=== PATIENT | female | born 1995 | race Caucasian/White ===

== ENCOUNTER 2016-08-03 10:52 | Inpatient (IN) | payer BC, OTHER ==
--- NOTE | 2016-08-03 12:05 | P.HPOB ---
History of Present Illness H&P Date: 08/03/16 Chief Complaint: Strong regular uterine contractions This is a 20-year-old white female 1 para 0 EDC 08/02/2016 at 40 and one sevenths weeks' gestation. Patient presents with a history of strong regular uterine contractions. She denies fluid leakage or vaginal bleeding. She states the fetus has been active throughout the weekend including this morning. On admission, however, no heart tones were noted. Bedside ultrasound confirmed intrauterine demise, vertex whitney. history: Blood type O positive, rubella status nonimmune, antibody screen negative, VDRL testing, urine culture, HIV testing, hepatitis B surface antigen, gonorrhea and chlamydia cultures, Pap smear all negative. 18 week ultrasound was significant for a lemon shaped had, choroid plexus cyst, and bright cord a tendon a. Patient was sent to [facility], maternal - medicine for second opinion, there evaluation was consistent with suspicion of normal variant. She also had a subchorionic bleed noted in the first trimester ultrasound, resolved at 20 weeks scan. Group B strep cultures negative. Current medications vitamins daily. ALLERGIES none known. Family history essentially unremarkable. Social history: Patient is single, she denies alcohol or drug use, she has never been a smoker. Past medical history is essentially negative. Past surgical history negative. On exam this is a pleasant young female, she is 5 foot 2-1/2 inches, 212 pounds , vital signs are stable and she is afebrile. The general physical exam is within normal limits. The chest is clear, the extremities reveal no edema. The cervix is 5-6 cm dilated, 80% effaced, -2 station, vertex presentation. Artificial amniorrhexis reveals dark meconium-stained fluid. No heart rate is noted per monitor or bedside ultrasound, consistent with intrauterine demise. Impression: 40 and one sevenths weeks intrauterine , IUFD, meconium- stained fluid, suspect abnormal fetus per 19 week ultrasound. Plan: We will proceed with Cytotec intravaginally per protocol. Close maternal surveillance. Anesthesia is aware. Option for epidural is discussed which at this time patient is declining. Past Medical History Past Medical History: No Reported History History of Any Multi-Drug Resistant Organisms: None Reported Past Surgical History: No Surgical Hx Reported Past Psychological History: No Psychological Hx Reported Smoking Status: Never smoker Past Alcohol Use History: None Reported Past Drug Use History: None Reported Medications and Allergies Home Medications Medication Instructions Recorded Confirmed Type Pnv with Ca,No.72/Iron/FA 1 tab PO DAILY 12/27/15 08/03/16 History [ Plus Tablet] Allergies Allergy/AdvReac Type Severity Reaction Status Date / Time No Known Allergies Allergy Verified 08/03/16 11:05 Exam - Vital Signs Vital signs: Intake and Output 08/02/16 08/03/16 08/03/16 22:59 06:59 14:59 Other: Weight 90.718 kg Patient Weight 08/04/16 06:59 Weight 90.718 kg
[2016-08-03] MEDS: LACTATED RINGERS 1,000 ML IV SCH ×2 (12:19→22:05)
[2016-08-03] MEDS: MISOPROSTOL 200 MCG TAB VAGINAL SCH ×2 (12:27→23:02)
[2016-08-03] MEDS ORDERED: BUTORPHANOL 1 MG/ML 1 ML VIAL IV PRN (12:35)
[2016-08-03 12:46] LABS: Basophils # (A) 0.1 k/uL (0-0.2); Basophils % (A) 1 %; CH 31.1; CHCM 34.6; Eosinophils # (A) 0.2 k/uL (0-0.7); Eosinophils % (A) 1 %; HCT 45.4 % (34.0-46.0); HDW 2.58; HGB 15.3 gm/dL (11.4-16.0); Luc # (Auto) 0.26; Luc % (Auto) 2; Lymphocytes # (A) 1.9 k/uL (1.0-4.8); Lymphocytes % (A) 17 %; MCH 30.3 pg (25.0-35.0); MCHC 33.6 g/dL (31.0-37.0); MCV 90.2 fL (80.0-100.0); Mean Platelet Volume 7.2; Monocytes # (A) 0.5 k/uL (0-1.0); Monocytes % (A) 4 %; Neutrophils % (A) 74 %; RBC 5.03 m/uL (3.80-5.40); RDW 13.4 % (11.5-15.5); WBC 10.8 k/uL (3.8-10.6); WBC (Perox) 11.54
[2016-08-03] MEDS ORDERED: SIMETHICONE 80 MG CHEWABLE PO PRN ×3 (15:20→22:59)
[2016-08-03] MEDS ORDERED: WITCH HAZEL 1 EACH MED..PAD TOPICAL PRN ×3 (15:20→22:59)
[2016-08-03] MEDS ORDERED: HYDROCORTISONE 2.5% RECTAL CREAM 30 GM TUBE RECTAL PRN ×3 (15:20→22:59)
[2016-08-03] MEDS ORDERED: diphenhydrAMINE 50 MG CAP PO PRN ×3 (15:20→22:59)
[2016-08-03] MEDS ORDERED: Acetaminophen-Codeine 300-30mg TAB PO PRN (15:20)
[2016-08-03] MEDS ORDERED: ZOLPIDEM 5 MG TAB PO PRN ×3 (15:20→22:59)
[2016-08-03] MEDS ORDERED: BENZOCAINE/MENTHOL SPRAY 1 GM/SPRAY AEROSOL TOPICAL PRN ×3 (15:20→22:59)
[2016-08-03] MEDS ORDERED: diphenhydrAMINE 50 MG/ML 1 ML VIAL IVP PRN ×6 (15:20→22:59)
[2016-08-03] MEDS ORDERED: ACETAMINOPHEN TAB 325 MG TAB PO PRN ×3 (15:20→22:59)
[2016-08-03] MEDS ORDERED: diphenhydrAMINE 25 MG CAP PO PRN ×3 (15:20→22:59)
[2016-08-03] MEDS ORDERED: LANOLIN CREAM 5 GM TUBE TOPICAL PRN ×3 (15:20→22:59)
[2016-08-03] MEDS ORDERED: IBUPROFEN 600 MG TAB PO PRN ×3 (15:20→22:59)
--- NOTE | 2016-08-03 15:20 | P.PROBDLV ---
Vaginal Delivery Note - . Vaginal Delivery Note: This is a 20-year-old white female 1 para 0 EDC 08/02/2016 at 40 and one sevenths weeks' gestation. Patient presented to labor and delivery with a complaint of strong regular uterine contractions. Upon evaluation in the triage area, heart tones could not be located. For this reason, a bedside ultrasound was performed and this verified the presence of no heart rate, consistent with intrauterine demise. The family was notified and thorough discussion ensued. Patient states she has felt activity up until this morning. She denies vaginal bleeding or fluid leakage. On admission her cervix was 4 cm dilated, please see my dictated history and physical for details. course is remarkable for sonographic findings at 19 weeks consistent with 11 shaped head, choroid plexus cysts, and abnormal chordaie tendonaie of the heart. Artificial amniorrhexis revealed very darkly stained meconium fluid. Patient was counseled regarding choice of epidural versus Stadol, she chose Stadol 1 mg 1 dose for pain relief. Cytotec 400 MCG's was placed intravaginally to augment labor. Patient progressed well through labor and became completely dilated with a strong urge to push. The perineal body was prepped and draped in the usual sterile fashion. The infant's head delivered at 1500 hrs. The scalp was noted to be sloughing from the head. There was a very tight nuchal cord 1 that was reduced on the perineal body. Patient was officially delivered of a liveborn female at 1500 hrs. scores were 0 and 0 at one and 5 minutes respectively. There was no heart rate. Trivascular cord was noted, cord was doubly clamped and ligated. The infant was inspected and there was obvious skin sloughing about the neck and chest, but no other obvious physical anomalies were noted. She was wrapped gently in blankets and given to family members to hold as per their comfort level. The placenta delivered spontaneously, it was inspected and noted to be very darkly meconium stained with hemorrhagic trivascular cord at 1502 hrs. The placenta appeared small to my inspection but fully intact. At this time thorough inspection of the cervix, vagina, perineal, periurethral, and perirectal areas revealed no lacerations. No suturing was deemed necessary. The perineal body was cleaned and dry and a pad placed. Weight and height of the infant has not been recorded at time of this dictation, as family members are beginning the grieving process. Spiritual support has been offered , family has called their own home comfort advisor. Continue patient and family support.
[2016-08-03] MEDS ORDERED: OXYTOCIN 30 UNITS/500 ML NS 30 UNIT in SALINE 1 500ML.BAG IV SCH ×2 (15:30→19:00)
[2016-08-03 15:44] VITALS: BMI 34.3
[2016-08-03] MEDS ORDERED: MEASLES-MUMPS-RUBELLA VACC/PF 12,500 UNIT/0.5 ML VIAL SQ ONE (18:50)
[2016-08-03] MEDS ORDERED: SENNOSIDES-DOCUSATE SODIUM 1 EACH TAB PO SCH ×2 (20:00)
[2016-08-03 23:33] VITALS: RESP 16
[2016-08-04] MEDS ORDERED: SENNOSIDES-DOCUSATE SODIUM 1 EACH TAB PO SCH (08:00)
[2016-08-04] MEDS: LACTATED RINGERS 1,000 ML IV SCH (08:30)
--- NOTE | 2016-08-04 08:41 | P.DS ---
Providers Date of admission: 08/03/16 11:51 Expected date of discharge: 08/04/16 Attending physician: Ena [facility] Course: This is a 20-year-old white female 1 para 0 EDC 08/02/2016 at 40 and one sevenths weeks' gestation. Patient presented to labor and delivery with a complaint of regular strong uterine contractions and was noted to be in labor. However, no heart tones could be found, bedside ultrasound confirmed intrauterine demise. Please see my dictated history and physical for details. Artificial amniorrhexis revealed darkly stained meconium fluid. Patient progressed well through labor with the aid of 400 MCG's of Cytotec placed intravaginally 1. She gave to a stillborn female , 6 lbs. 1 oz. or 2750 g. There was a very tight nuchal cord noted at the time of delivery which was reduced. No perineal lacerations were noted, no perineal stitches were deemed necessary. Estimated blood loss 250 mL's. There was support was offered and provided. Please see my dictated delivery note for details. This morning the patient is doing well. She is voiding, ambulating and passing flatus without difficulty. Signs are stable and she is afebrile. She is still contemplating the option of an autopsy for her daughter. There is minimal to moderate lochia rubra, pain is well tolerated with IV and patient is judged to be in good condition for discharge home. I discussed with her the option of medication for anxiety or depression, she states that she is feeling good family support and is declining that option at this time. Patient will follow-up with me in the office in 2-3 weeks. I have reminded her no intercourse, tampons or douching. She will use [id number] ibuprofen products as needed for pain, 200 mg pills, 3 every 6 hours as needed. I've asked her to call me with any fevers shakes or chills, foul smelling or copious lochia, with the passage of large blood clots, with any pain not alleviated by [id number] products, or indeed with any concerns. Etiology of this stillbirth is uncertain, however I am strongly suspecting the presence of a very tight nuchal cord. Patient Condition at Discharge: Good Plan - Discharge Summary Discharge Medication List Pnv with Ca,No.72/Iron/FA [ Plus Tablet] 1 tab PO DAILY 12/27/15 [ History] Follow up Appointment(s)/Referral(s): Ena Perla MD [STAFF PHYSICIAN] - 3 Weeks Discharge Disposition: HOME SELF-CARE
[2016-08-04 09:19] VITALS: BP 129/76; PULSE 71; TEMP 97.5
--- NOTE | 2016-08-04 09:19 | US ---
EXAMINATION TYPE: US OB limited third trimester DATE OF EXAM: 08/03/2016 11:32 AM COMPARISON: First trimester US 12/27/15 CLINICAL HISTORY: No heart tones heard. EXAM PERFORMED: Limited for heart GESTATIONAL AGE / DATING Physician Established: (40 weeks/1 days) EDC: 08/02/2016 No growth performed on today?s study per ordering physician SURVEY PRESENTATION: Vertex LIE: Spine to maternal left HEART RATE: 0 bpm RHYTHM: none Limited ultrasound fails to detect heart rate despite several attempts by technologist. IMPRESSION: Ultrasound findings consistent with intrauterine demise.
== END 2016-08-04 12:30 | disposition home or self-care (01) | DRG 775 ==
LOC: FBPOP 10:52 → 4FBP 11:51
PROVIDERS: ADMIT Obstetrics & Gynecology; ATTEND Obstetrics & Gynecology
PROC: 10E0XZZ Delivery of Products of Conception, External Approach (ICD-10-PCS; principal; 2016-08-03)
DX: O36.4XX0 Maternal care for intrauterine death, not applicable or unspecified (principal); O77.0 Labor and delivery complicated by meconium in amniotic fluid; O69.1XX0 Labor and delivery complicated by cord around neck, with compression, not applicable or unspecified; Z37.1 Single stillbirth; Z3A.40 40 weeks gestation of pregnancy
CPT/HCPCS: 76815; 85025; 88307; 88313; 90707; 99213

== ENCOUNTER 2017-10-04 10:56 | Emergency (ER) | payer BC ==
[2017-10-04 11:13] VITALS: TEMP 97.8
[2017-10-04] MEDS ORDERED: KETOROLAC 60 MG/2 ML VIAL IM STA (11:29)
[2017-10-04] MEDS ORDERED: ORPHENADRINE 30 MG/ML 2 ML VIAL IM STA (11:29)
--- NOTE | 2017-10-04 11:34 | ED ---
General Adult HPI - General Chief complaint: Chest Pain Stated complaint: CHEST AND BACK PAIN Time Seen by Provider: 10/04/17 11:21 Source: patient, family, RN notes reviewed Mode of arrival: wheelchair Limitations: no limitations - History of Present Illness Initial comments: Patient is a pleasant 21-year-old female presenting to the emergency department with back discomfort. Patient was taking pictures and bending over with sudden discomfort of her mid back. Discomfort is persistent. Discomfort is moderate to severe. Discomfort increases with deep breaths and movement. Otherwise no dyspnea. Discomfort is now starting to radiate towards the chest. Patient has had similar symptoms several times previously, approximately 4. - Related Data Home Medications Medication Instructions Recorded Confirmed Escitalopram [Lexapro] 20 mg PO HS 10/04/17 10/04/17 Sertraline [Zoloft] 25 mg PO DIRECTED 10/04/17 10/04/17 Previous Rx's Medication Instructions Recorded Cyclobenzaprine [Flexeril] 10 mg PO TID PRN #12 tablet 10/04/17 Ibuprofen [Motrin] 600 mg PO Q6HR PRN #20 tab 10/04/17 Allergies Allergy/AdvReac Type Severity Reaction Status Date / Time No Known Allergies Allergy Verified 10/04/17 11:33 Review of Systems ROS Statement: Those systems with pertinent positive or pertinent negative responses have been documented in the HPI. ROS Other: All systems not noted in ROS Statement are negative. Constitutional: Denies: fever Eyes: Denies: eye pain ENT: Denies: ear pain Respiratory: Denies: cough Cardiovascular: Reports: chest pain Endocrine: Denies: fatigue Gastrointestinal: Denies: abdominal pain, vomiting Genitourinary: Denies: dysuria Musculoskeletal: Reports: back pain Skin: Denies: rash Neurological: Denies: weakness Past Medical History Past Medical History: No Reported History History of Any Multi-Drug Resistant Organisms: None Reported Past Surgical History: No Surgical Hx Reported Past Anesthesia/Blood Transfusion Reactions: No Reported Reaction Past Psychological History: Anxiety, Depression Smoking Status: Current every day smoker Past Alcohol Use History: None Reported, Occasional Past Drug Use History: None Reported - Past Family History Mother Family Medical History: No Reported History General Exam Limitations: no limitations General appearance: alert, in no apparent distress Head exam: Present: atraumatic Eye exam: Present: normal appearance Respiratory exam: Present: normal lung sounds bilaterally. Absent: chest wall tenderness Cardiovascular Exam: Present: regular rate, normal rhythm Expanded Peripheral pulses: 2+: Radial (R), Radial (L), Posterior Tibialis (R), Posterior Tibialis (L), Dorsalis Pedis (R), Dorsalis Pedis (L) GI/Abdominal exam: Present: soft. Absent: tenderness Extremities exam: Present: normal inspection. Absent: pedal edema, calf tenderness Back exam: Present: other (Patient has bilateral parathoracic muscle fullness and tenderness T8-T9 region without specific vertebral tenderness.) Neurological exam: Present: alert. Absent: motor sensory deficit Psychiatric exam: Present: normal affect, normal mood Skin exam: Present: normal color Course Vital Signs 10/04/17 10/04/17 10/04/17 11:10 12:02 12:23 Temperature 97.8 F Pulse Rate 88 76 Pulse Rate [ 81 Left Sitting Pulse Oximetery ] Pulse Rate [ 79 Right Sitting Pulse Oximetery ] Respiratory 16 16 Rate Blood Pressure 117/67 132/64 Blood Pressure 123/65 [Left Arm] Blood Pressure 125/71 [Right Arm] O2 Sat by Pulse 98 96 Oximetry EKG Findings - EKG Comments: EKG Findings:: Normal sinus rhythm 80. IA 148. QRS 94. QT 358. QTC 412. Normal axis. Normal QRS. No acute ST change. Medical Decision Making - Medical Decision Making Patient reevaluated and resting comfortably in bed. Patient and mother updated on results and plan. Bilateral blood pressures equal. - Lab Data Lab Results 10/04/17 Range/Units 12:10 Urine HCG, Qual Not Detected (Not Detectd) - Radiology Data Radiology results: image reviewed (Chest x-ray and thoracic x-ray revealed no acute process) Disposition Clinical Impression: Thoracic myofascial strain Disposition: HOME SELF-CARE Condition: Stable Instructions: Thoracic Back Strain (ED) Additional Instructions: Please follow-up with primary care physician in the next day or 2 for recheck. Return for increased pain, weakness, difficult to breathing, worsening symptoms or other concerns. Prescriptions: Cyclobenzaprine [Flexeril] 10 mg PO TID PRN #12 tablet PRN Reason: Pain Ibuprofen [Motrin] 600 mg PO Q6HR PRN #20 tab PRN Reason: Pain Referrals: Leana Dias DO [Primary Care Provider] - 1-2 days Time of Disposition: 13:26
--- NOTE | 2017-10-04 12:59 | XR ---
EXAMINATION TYPE: XR chest 2V DATE OF EXAM: 10/04/2017 COMPARISON: 01/25/2001 HISTORY: Chest pain and back pain TECHNIQUE: Frontal and lateral views of the chest are obtained. FINDINGS: There is no focal air space opacity, pleural effusion, or pneumothorax seen. The cardiac silhouette size is within normal limits. The osseous structures are intact. IMPRESSION: No acute cardiopulmonary process.
--- NOTE | 2017-10-04 13:00 | XR ---
EXAMINATION TYPE: XR thoracic spine complete DATE OF EXAM: 10/04/2017 CLINICAL HISTORY: Fall with mid back pain. TECHNIQUE: Frontal, lateral, and swimmer's view of thoracic spine are obtained. COMPARISON: None. FINDINGS: Thoracic spine show satisfactory alignment without evidence of acute fracture or dislocatio n. Vertebral body heights and disc space heights are preserved. Visualized ribs are unremarkable. IMPRESSION: No acute fracture or malalignment is seen in the thoracic spine.
[2017-10-04] MEDS ORDERED: ACET/COD 300 MG/30 MG STARTER PACK 6 TAB BTL PO STA (13:26)
[2017-10-04 13:49] VITALS: BP 154/64; PULSE 72; RESP 18
== END 2017-10-04 13:49 | disposition home or self-care (01) ==
LOC: EC 10:56
DX: S29.012A Strain of muscle and tendon of back wall of thorax, initial encounter (principal); R07.9 Chest pain, unspecified; F32.9 Major depressive disorder, single episode, unspecified; F41.9 Anxiety disorder, unspecified; F17.200 Nicotine dependence, unspecified, uncomplicated; Z79.899 Other long term (current) drug therapy; X50.1XXA Overexertion from prolonged static or awkward postures, initial encounter; Y93.89 Activity, other specified
CPT/HCPCS: 99285 ×2; 96372 ×3; 93005; 81025; 72072; 71046; J2360; J1885

== ENCOUNTER → 2018-05-27 | Outpatient (CLI) | payer BC ==
[2018-05-27 16:40] LABS: Basophils % (A) 0 %; Eosinophils # (A) 0.2 k/uL (0-0.7); Eosinophils % (A) 2 %; HGB 12.5 gm/dL (11.4-16.0); Lymphocytes # (A) 1.6 k/uL (1.0-4.8); Lymphocytes % (A) 17 %; MCH 29.7 pg (25.0-35.0); MCHC 33.8 g/dL (31.0-37.0); Mean Platelet Volume 7.5; Monocytes # (A) 0.5 k/uL (0-1.0); Monocytes % (A) 5 %; Neutrophils # (A) 7.3 k/uL (1.3-7.7); Neutrophils % (A) 75 %; Platelet Count 299 k/uL (150-450); RDW 14.2 % (11.5-15.5); WBC 9.7 k/uL (3.8-10.6)
[2018-05-27 16:48] LABS: Uric Acid 4.1 mg/dL (3.7-7.4)
--- NOTE | 2018-05-27 17:32 | US ---
EXAMINATION TYPE: US gallbladder DATE OF EXAM: 05/27/2018 COMPARISON: NONE CLINICAL HISTORY: with upper abdominal pain; Epigastric and left upper abdominal pain today; 23 weeks ; EXAM MEASUREMENTS: Liver Length: 16.7 cm Gallbladder Wall: 0.3 cm CBD: 0.4 cm Right Kidney: 10.8 x 6.4 x 5.1 cm Pancreas: wnl Liver: wnl Gallbladder: wnl; no stones, polyps, or sludge is seen; wall is at upper limits of normal for 5 hour s NPO status Evidence for sonographic Berg's sign: no CBD: wnl Right Kidney: No hydronephrosis or masses seen IMPRESSION: Gallbladder is somewhat contracted. No gallstones or dilated ducts.
[2018-05-27 18:57] VITALS: BP 123/72; PULSE 78; RESP 16; TEMP 98.5
--- NOTE | 2018-06-06 09:08 | P.MSEPDOC ---
Presenting Problems - Arrival Data Date of Arrival on Unit: 05/27/18 Time of Arrival on Unit: 14:30 Mode of Transport: Portable - Complaint OB-Reason for Admission/Chief Complaint: Other Comment: epigastric pain Medical History - Information : 2 Para: 1 Term: 0 : 0 Abortions: Spontaneous or Elective: 0 Number of Living Children: 0 - Gestational Age Gestational Age by LIBIA (wks/days): 24 Weeks and 0 Days Review of Systems - Review of Systems Constitutional: No problems Breast: No problems ENT: No problems Cardiovascular: No problems Respiratory: No problems Gastrointestinal: No problems Genitourinary: No problems Musculoskeletal: No problems Neurological: No problems Skin: No problems Vital Signs - Temperature Temperature: 98.5 F Temperature Source: Oral - Pulse Sitting Pulse Rate: 78 Pulse Assessment Method: Automatic Cuff - Respirations Respiratory Rate: 16 Oxygen Delivery Method: Room Air - Blood Pressure Sitting Blood Pressure: 123/72 Blood Pressure Mean: 89 Blood Pressure Source: Automatic Cuff Medical Screen Scoring (Pre) - Cervical Exam Dilation: 0 cm = 0 - Uterine Contractions Frequency: N/A Duration: N/A Intensity: N/A - Maternal Vital Signs Maternal Temperature: N/A Maternal Respirations: N/A - Pain Assessment Pain Location and Character: Abdomen Pain Scale Used: Numeric (1 - 10) Pain Intensity: 6 Pain Management Goal: 6 Pain Description: Sharp - Maternal Trauma Maternal Trauma: N/A - Assessment Baseline FHR: 135 - Total Score Total Score (Pre): 0 - Level of Risk Level of Risk: Low (0-5) Physician Notification (Pre) - Physician Notified Physician Notified Date: 05/27/18 Physician Notified Time: 15:45 New Order Received: Yes - Notification Comment Comment: dr dos santos at the bedside doing assessment on patient Disposition - Disposition OB Disposition: Discharge to home, Written follow up instructions reviewed Discharge Date: 05/27/18 Discharge Time: 17:30 I agree with the RN Medical Screening Exam: Yes Risk & Benefit of care provided described in d/c instruction: Yes Diagnosis: RELATED CONDITIONS, UNSPECIFIED, SECOND TRIMESTER
== END | disposition home or self-care (01) ==
LOC: FBPOP 14:26
PROVIDERS: ATTEND Obstetrics & Gynecology
DX: O26.892 Other specified pregnancy related conditions, second trimester (principal); Z3A.24 24 weeks gestation of pregnancy
CPT/HCPCS: 76705; 84450; 84460; 84550; 85025; 99213

== ENCOUNTER 2018-08-12 23:25 | Outpatient (CLI) | payer BC, OTHER ==
[2018-08-13 00:33] VITALS: BP 128/67; PULSE 86; RESP 16; TEMP 96.4
--- NOTE | 2018-08-15 09:01 | P.MSEPDOC ---
Presenting Problems - Arrival Data Date of Arrival on Unit: 08/13/18 Time of Arrival on Unit: 23:25 Mode of Transport: Ambulatory - Complaint OB-Reason for Admission/Chief Complaint: Decreased Movement Comment: Not feeling for the past few hours Medical History - Information : 2 Para: 1 Term: 1 : 0 Abortions: Spontaneous or Elective: 0 Number of Living Children: 0 - Gestational Age Gestational Age by LIBIA (wks/days): 35 Weeks and 0 Days Review of Systems - Review of Systems Constitutional: No problems Breast: No problems ENT: No problems Cardiovascular: No problems Respiratory: No problems Gastrointestinal: No problems Genitourinary: No problems Musculoskeletal: No problems Neurological: No problems Skin: No problems Vital Signs - Temperature Temperature: 96.4 F Temperature Source: Temporal Artery Scan - Pulse Right Brachial Pulse Rate: 86 Pulse Assessment Method: Automatic Cuff - Respirations Respiratory Rate: 16 Oxygen Delivery Method: Room Air O2 Sat by Pulse Oximetry: 98 - Blood Pressure Right Arm Blood Pressure: 128/67 Blood Pressure Mean: 87 Blood Pressure Source: Automatic Cuff Medical Screen Scoring (Pre) - Cervical Exam Dilation: Exam Deferred Effacement: Exam Deferred - Uterine Contractions Frequency: < 36 weeks = 6 Duration: > 40 seconds = 2 Intensity: N/A - Maternal Vital Signs Maternal Temperature: N/A - Pain Assessment Pain Scale Used: Numeric (1 - 10) Pain Intensity: 0 - Assessment Baseline FHR: 135 Heart Rate - NICHD Category: Category I (Normal) = 0 NST: Reactive - Total Score Total Score (Pre): 8 - Level of Risk Level of Risk: Medium (6-9) Physician Notification (Pre) - Physician Notified Physician Notified Date: 08/12/18 Physician Notified Time: 23:53 Spoke With: Kelly New Order Received: Yes - Notification Comment Comment: Pt not feeling contractions, reactive NST, feeling move now. D/ c home with follow up appointment 08/18. Disposition - Disposition OB Disposition: Discharge to home, Written follow up instructions reviewed Discharge Date: 08/13/18 Discharge Time: 00:00 I agree with the RN Medical Screening Exam: Yes Risk & Benefit of care provided described in d/c instruction: Yes Diagnosis: DECREASED MOVEMENTS, THIRD TRIMESTER, FETUS 1
== END 2018-08-13 | disposition home or self-care (01) ==
LOC: FBPOP 23:25
PROVIDERS: ATTEND Obstetrics & Gynecology
DX: O36.8131 Decreased fetal movements, third trimester, fetus 1 (principal); Z3A.35 35 weeks gestation of pregnancy
CPT/HCPCS: 59025; 99213

== ENCOUNTER 2018-08-29 05:57 | Inpatient (IN) | payer BC, OTHER ==
[2018-08-29] MEDS ORDERED: OXYTOCIN 10 UNIT/ML 1 ML VIAL IM PRN (06:17)
[2018-08-29] MEDS ORDERED: METHYLERGONOVINE 0.2 MG/ML 1 ML AMP IM PRN (06:17)
[2018-08-29] MEDS ORDERED: LIDOCAINE 0.5% (PF) 5 MG/ML (50 ML SDV) SQ PRN (06:17)
[2018-08-29] MEDS ORDERED: CARBOPROST TROMETHAMINE 250 MCG/ML 1 ML AMP IM PRN (06:17)
[2018-08-29] MEDS ORDERED: TERBUTALINE 1 MG/ML VIAL SQ PRN (06:17)
[2018-08-29 06:27] VITALS: BMI 37.8
[2018-08-29] MEDS ORDERED: OXYTOCIN 20 UNITS/1000 ML NS 1,000 ML IV SCH (06:30)
[2018-08-29] MEDS: LACTATED RINGERS 1,000 ML IV SCH ×2 (06:33→14:08)
[2018-08-29 07:09] LABS: Basophils # (A) 0.1 k/uL (0-0.2); Basophils % (A) 1 %; Eosinophils # (A) 0.2 k/uL (0-0.7); Eosinophils % (A) 2 %; HCT 36.6 % (34.0-46.0); Lymphocytes # (A) 2.2 k/uL (1.0-4.8); Lymphocytes % (A) 24 %; MCH 28.3 pg (25.0-35.0); MCHC 32.7 g/dL (31.0-37.0); MCV 86.6 fL (80.0-100.0); Mean Platelet Volume 7.4; Monocytes # (A) 0.5 k/uL (0-1.0); Monocytes % (A) 6 %; Neutrophils # (A) 5.8 k/uL (1.3-7.7); Neutrophils % (A) 65 %; Platelet Count 336 k/uL (150-450); RBC 4.23 m/uL (3.80-5.40); RDW 13.7 % (11.5-15.5)
[2018-08-29 07:35] LABS: Glucose,Whole Blood 88 mg/dL (75-99)
--- NOTE | 2018-08-29 07:38 | P.HPOB ---
History of Present Illness H&P Date: 08/29/18 This is a 22-year-old white female 2 para 1001 EDC 09/17/2018 at 37-2/7 weeks' gestation. Patient presents today for induction for cholestasis of . She has been followed carefully in the office with nonstress testing and biophysical profiles. She has been on Questran twice daily. Recommendation from maternal- medicine is for induction at 39 weeks. Cervix is favorable. Fetus is been active throughout the . Past medical history is significant for IUFD at 40 and one sevenths weeks in the past. Past surgical history elbow surgery of the right side in 2017, wisdom teeth extracted. Current medications Zofran as needed, Questran 8 mg twice daily, vitamin daily. ALLERGIES none known. Family history noncontributory. Social history patient is a former smoker one half pack per day, she is single, she is employed locally. She denies alcohol or drug use. history is significant as mentioned for cholestasis of diagnosed by elevated fasting bile acids. Blood type is O+. Rubella status immune. VDRL testing, urine culture, hepatitis B surface antigen, HIV testing, gonorrhea and chlamydia cultures, group B strep cultures all negative. Recent ultrasound reveals estimated weight of 97th percentile, LETICIA 20 cm. One- hour Glucola elevated, 3 hour GTT consistent with gestational diabetes. On exam she is 5 foot 4 inches, 220 pounds, blood pressure 134/82, vital signs stable and she is afebrile. Gen. physical exam is within normal limits. Chest is clear. Extremities reveal no edema. heart tones are consistent with reactive NST, baseline 150 with accelerations into the 170s. Cervix is 3 cm dilated, 70% effaced, -2 station, vertex presentation. Artificial amniorrhexis reveals clear fluid. Impression: 37-2/7 weeks intrauterine , here for induction with favorable cervix for cholestasis of . All signs currently reassuring. Gestational diabetes also noted, fasting blood sugar 88. Plan: Oxytocin per hospital protocol. Close maternal and surveillance. Anticipate normal spontaneous vaginal delivery. Review of Systems As in HPI please Constitutional: Reports as per HPI Past Medical History Past Medical History: Asthma Additional Past Medical History / Comment(s): sports induced asthma, GDM diet controlled History of Any Multi-Drug Resistant Organisms: None Reported Past Surgical History: Orthopedic Surgery Additional Past Surgical History / Comment(s): left elbow 2017 Past Anesthesia/Blood Transfusion Reactions: No Reported Reaction Past Psychological History: Anxiety, Depression Smoking Status: Former smoker Past Alcohol Use History: None Reported, Occasional Past Drug Use History: None Reported - Past Family History Mother Family Medical History: No Reported History Medications and Allergies Home Medications Medication Instructions Recorded Confirmed Type Amoxicillin 500 mg PO BID 08/29/18 08/29/18 History Pnv,Calcium 72/Iron/Folic Acid 1 each PO DAILY 08/29/18 08/29/18 History [ Plus Tablet] Allergies Allergy/AdvReac Type Severity Reaction Status Date / Time No Known Allergies Allergy Verified 08/29/18 06:14 Exam Vital Signs Temp Pulse Resp BP 08/29/18 06:19 97.2 F L 99 18 134/82 Intake and Output 08/28/18 08/29/18 08/29/18 22:59 06:59 14:59 Other: Weight 99.79 kg See dictation under HPI please Results Result Diagrams: 08/29/18 06:46 Assessment and Plan Assessment: 37-2/7 weeks intrauterine , cholestasis of , gestational diabetes, history of intrauterine demise full-term. Here for induction of labor with favorable cervix. Plan: Continue close maternal and surveillance. Oxytocin per hospital protocol. Anticipate normal spontaneous vaginal delivery. Time with Patient: Less than 30
[2018-08-29] MEDS ORDERED: BUTORPHANOL 1 MG/ML 1 ML VIAL IV PRN (13:59)
[2018-08-29] MEDS ORDERED: diphenhydrAMINE 25 MG CAP PO PRN (15:31)
[2018-08-29] MEDS ORDERED: diphenhydrAMINE 50 MG/ML 1 ML VIAL IVP PRN ×2 (15:31)
[2018-08-29] MEDS ORDERED: LANOLIN CREAM 5 GM TUBE TOPICAL PRN (15:31)
[2018-08-29] MEDS ORDERED: ZOLPIDEM 5 MG TAB PO PRN (15:31)
[2018-08-29] MEDS ORDERED: WITCH HAZEL 1 EACH MED..PAD TOPICAL PRN (15:31)
[2018-08-29] MEDS ORDERED: diphenhydrAMINE 50 MG CAP PO PRN (15:31)
[2018-08-29] MEDS ORDERED: BENZOCAINE/MENTHOL SPRAY 1 GM/SPRAY AEROSOL TOPICAL PRN (15:31)
[2018-08-29] MEDS ORDERED: SIMETHICONE 80 MG CHEWABLE PO PRN (15:31)
[2018-08-29] MEDS ORDERED: ACETAMINOPHEN TAB 325 MG TAB PO PRN (15:31)
[2018-08-29] MEDS ORDERED: HYDROCORTISONE 2.5% RECTAL CREAM 30 GM TUBE RECTAL PRN (15:31)
--- NOTE | 2018-08-29 15:31 | P.PROBDLV ---
Vaginal Delivery Note - . Vaginal Delivery Note: This is a 22-year-old white female 2 para 1000 EDC 09/17/2018 at 37-2/7 weeks' gestation. Patient presented today for induction for cholestasis of , on recommendation of maternal medicine specialists at . Fetus is been active throughout the , and followed closely in the office with biophysical profiles and nonstress testing. Patient has been on Questran for good relief of her itching. Please see admitting H&P for details. Artificial amniorrhexis revealed clear fluid. Oxytocin was started and titrated per hospital protocol. Patient requested Stadol 1 and this was given per her request. heart tones were reassuring throughout the first and second stages of labor. Patient became completely dilated at 1506 hrs. and began the second stage of labor at that time. Perineal body was prepped and draped in usual sterile fashion. With excellent maternal expulsive efforts the 's head delivered occiput anterior and restituted accordingly. There was a nuchal cord 1 that was reduced. Oropharynx, nasopharynx, and external nares were then bulb suctioned on the perineal body. Patient was officially delivered of a liveborn male infant at 1513 hrs. Umbilical cord was doubly clamped and ligated, he was handed to waiting nurses for evaluation where scores of 9 and 9 at one and 5 minutes respectively are given. Placenta delivered spontaneously, it was inspected and noted to be intact with trivascular cord at 1516 hrs. Uterus is massaged. Bleeding is somewhat brisk, therefore Methergine was given 1 with excellent and immediate results. Inspection of the cervix, vagina, perineum, periurethral, and perirectal areas reveals a very small first-degree midline laceration at 6:00. This is reapproximated with a single figure-of- eight suture of Vicryl. All sponge needle and enhancement counts are correct at the end of the procedure. Patient is requesting circumcision for her infant son.
[2018-08-29] MEDS: SENNOSIDES-DOCUSATE SODIUM 1 EACH TAB PO SCH (20:08)
[2018-08-30] MEDS: LACTATED RINGERS 1,000 ML IV SCH (04:28)
[2018-08-30 07:03] LABS: Basophils # (A) 0.1 k/uL (0-0.2); Basophils % (A) 1 %; Eosinophils # (A) 0.1 k/uL (0-0.7); Eosinophils % (A) 1 %; HCT 37.8 % (34.0-46.0); HGB 12.3 gm/dL (11.4-16.0); Lymphocytes # (A) 2.5 k/uL (1.0-4.8); Lymphocytes % (A) 24 %; MCHC 32.4 g/dL (31.0-37.0); MCV 86.5 fL (80.0-100.0); Mean Platelet Volume 7.2; Monocytes # (A) 0.5 k/uL (0-1.0); Monocytes % (A) 5 %; Neutrophils # (A) 7.1 k/uL (1.3-7.7); Neutrophils % (A) 67 %; Platelet Count 365 k/uL (150-450); RBC 4.37 m/uL (3.80-5.40); RDW 13.8 % (11.5-15.5); WBC 10.6 k/uL (3.8-10.6)
[2018-08-30] MEDS: IBUPROFEN 600 MG TAB PO PRN ×2 (07:36→19:28)
--- NOTE | 2018-08-30 07:41 | P.DS ---
Providers Date of admission: 08/29/18 05:57 Expected date of discharge: 08/30/18 Attending physician: Ena Perla Primary care physician: Stated None Hospital Course: This is a 22-year-old white female 2 para 1000 EDC 09/17/2018 at 37-2/7 weeks' gestation. Patient presented for induction of labor for history of cholestasis of . Consultation with maternal- medicine was obtained, recommendation was for delivery at 37 weeks with favorable cervix. was also complicated by gestational diabetes, home blood sugars under reasonably good control. Group B strep cultures negative. Please see my dictated history and physical for details. Patient was admitted, artificial amniorrhexis revealed clear fluid. She went on to deliver vaginally a liveborn male infant with scores of 9 and 9 at one and 5 minutes respectively. Infant weighed 9 lbs. 0 oz., or 4085 g. There was a small first-degree perineal laceration easily repaired, and estimated blood loss of 350 mL's. Please see dictated delivery note for details. This morning the patient is doing well. Her itching has completely resolved. She is voiding, ambulating, passing flatus without difficulty. Vital signs are stable and she is afebrile. is doing well, circumcision has been performed. Patient is judged to be in very good condition for discharge home. She is reminded no intercourse, tampons or douching. She will use over-the- counter products as needed for pain, ibuprofen Advil or Aleve as directed by the bottle. She will continue taking her vitamin daily. She has a breast pump and is breast-feeding without issue. I reminded her to call me with any fevers shakes or chills, foul smelling or copious lochia, with the passage of large blood clots, with any pain not alleviated by [id number] products, or indeed with any concerns. She will follow-up in the office with me in 6 weeks. We have briefly reviewed options for contraception and we'll discuss this further in the office. Patient Condition at Discharge: Good Plan - Discharge Summary Discharge Rx Participant: No New Discharge Prescriptions: No Action Pnv,Calcium 72/Iron/Folic Acid [ Plus Tablet] 1 each PO DAILY Amoxicillin 500 mg PO BID Discharge Medication List Amoxicillin 500 mg PO BID 08/29/18 [History] Pnv,Calcium 72/Iron/Folic Acid [ Plus Tablet] 1 each PO DAILY 08/29/18 [ History] Follow up Appointment(s)/Referral(s): Ena Perla MD [STAFF PHYSICIAN] - 6 Weeks
[2018-08-30 15:22] LABS: Hemoglobin A1C 5.5 % (4.0-6.0)
[2018-08-30] MEDS: SENNOSIDES-DOCUSATE SODIUM 1 EACH TAB PO SCH ×2 (18:08→21:38)
[2018-08-30] MEDS ORDERED: MENTHOL (NICE) LOZENGE MUCOUS MEM PRN (19:53)
[2018-08-30] MEDS ORDERED: LORATADINE 10 MG TAB PO SCH (20:00)
--- NOTE | 2018-08-31 07:53 | P.DS ---
Providers Date of admission: 08/29/18 05:57 Expected date of discharge: 08/31/18 Attending physician: Ena Perla Primary care physician: Stated None Hospital Course: Addendum to discharge yesterday. Patient stayed 1 additional night secondary to concern regarding voiding. She is again judged to be in very good condition for discharge home at this time. Maternal physical exam and assessment otherwise unchanged. Follow-up with me in 6 weeks as previously instructed. Patient Condition at Discharge: Good Plan - Discharge Summary Discharge Rx Participant: No New Discharge Prescriptions: No Action Pnv,Calcium 72/Iron/Folic Acid [ Plus Tablet] 1 each PO DAILY Amoxicillin 500 mg PO BID Discharge Medication List Amoxicillin 500 mg PO BID 08/29/18 [History] Pnv,Calcium 72/Iron/Folic Acid [ Plus Tablet] 1 each PO DAILY 08/29/18 [ History] Follow up Appointment(s)/Referral(s): Ena Perla MD [STAFF PHYSICIAN] - 6 Weeks
[2018-08-31 08:53] VITALS: BP 109/67; PULSE 76; RESP 18; TEMP 98.7
[2018-08-31] MEDS: SENNOSIDES-DOCUSATE SODIUM 1 EACH TAB PO SCH (08:57)
[2018-08-31] MEDS ORDERED: LORATADINE 10 MG TAB PO SCH (09:00)
== END 2018-08-31 12:45 | disposition home or self-care (01) | DRG 805 ==
LOC: 4FBP 05:57
PROVIDERS: ADMIT Obstetrics & Gynecology; ATTEND Obstetrics & Gynecology
PROC: 0HQ9XZZ Repair Perineum Skin, External Approach (ICD-10-PCS; principal; 2018-08-29)
PROC: 10E0XZZ Delivery of Products of Conception, External Approach (ICD-10-PCS; principal; 2018-08-29)
DX: O26.62 Liver and biliary tract disorders in childbirth (principal); K83.1 Obstruction of bile duct; Z37.0 Single live birth; O24.429 Gestational diabetes mellitus in childbirth, unspecified control; O70.0 First degree perineal laceration during delivery; Z3A.37 37 weeks gestation of pregnancy; Z87.891 Personal history of nicotine dependence; Z79.899 Other long term (current) drug therapy
CPT/HCPCS: 83036; 85025; 86850; 86900; 86901; 88307

== ENCOUNTER 2018-11-25 12:40 | Emergency (ER) | payer BC, OTHER ==
[2018-11-25] MEDS ORDERED: SODIUM CHLORIDE 0.9% 1,000 ML IV STA (13:16)
[2018-11-25 14:02] VITALS: RESP 16
--- NOTE | 2018-11-25 14:04 | ED ---
General Adult HPI - General Chief complaint: Abdominal Pain Stated complaint: Abd.pain Time Seen by Provider: 11/25/18 12:50 Source: patient, RN notes reviewed, old records reviewed Mode of arrival: ambulatory Limitations: no limitations - History of Present Illness Initial comments: 23-year-old female patient with no pertinent past medical history presents to ED with approximately 3 weeks of epigastric pain that is stabbing in nature was last approximately 5 minutes. Patient states that this occurs multiple times per day and is not associated with any activity, eating, rash. Patient denies any other complaints. Patient denies any chest pain or shortness of breath. Patient does report that she has had diarrhea for approximately 3 weeks as well. Patient denies any pain with urination. Patient denies any headache or change in vision. Patient is currently breast-feeding, states that she does not believe she is . Systemic: Pt denies fatigue, myalgia, fever/chills, rash. Pt denies weakness, night sweats, weight loss. Neuro: Pt denies headache, visual disturbances, syncope or pre-syncope. HEENT: Pt denies ocular discharge or irritation, otalgia, rhinorrhea, pharyngitis or notable lymphadenopathy. Cardiopulmonary: Pt denies chest pain, SOB, heart palpitations, dyspnea on exertion. Abdominal/GI: Pt denies nausea and vomitting. : Pt denies dysuria, burning w/ urination, frequency/urgency. Denies new onset urinary or bowel incontinence. MSK: Pt denies myalgia, loss of strength or function in extremities. Neuro: Pt denies new onset weakness, paresthesias. - Related Data Home Medications Medication Instructions Recorded Confirmed Pnv,Calcium 72/Iron/Folic Acid 1 tab PO DAILY 08/29/18 11/25/18 [ Plus Tablet] Previous Rx's Medication Instructions Recorded Cephalexin [Keflex] 500 mg PO Q12HR 7 Days cap 11/25/18 Allergies Allergy/AdvReac Type Severity Reaction Status Date / Time No Known Allergies Allergy Verified 11/25/18 13:06 Review of Systems ROS Statement: Those systems with pertinent positive or pertinent negative responses have been documented in the HPI. ROS Other: All systems not noted in ROS Statement are negative. Past Medical History Past Medical History: Asthma Additional Past Medical History / Comment(s): sports induced asthma, GDM diet controlled History of Any Multi-Drug Resistant Organisms: None Reported Past Surgical History: Orthopedic Surgery Additional Past Surgical History / Comment(s): left elbow 2017 Past Anesthesia/Blood Transfusion Reactions: No Reported Reaction Past Psychological History: Anxiety, Depression Smoking Status: Former smoker Past Alcohol Use History: Occasional Past Drug Use History: None Reported - Past Family History Mother Family Medical History: No Reported History General Exam - General Exam Comments Initial Comments: Constitutional: NAD, AOX3, Pt has pleasant affect. HEENT: NC/AT, trachea midline, neck supple, no lymphadenopathy. Posterior ph arynx non erythematous, without exudates. External ears appear normal, without discharge. Mucous membranes moist. Eyes PERRLA, EOM intact. There is no scleral icterus. No pallor noted. Cardiopulmonary: RRR, no murmurs, rubs or gallops, no JVD noted. Lungs CTAB in anterior and posterior steel. No peripheral edema. Abdominal exam: Abdomen soft and non-distended. Abdomen mildly tender to palpation in epigastric region. Seneca sign negative. No other areas of abdominal tenderness. No guarding no rigidity. Bowel sounds active in LLQ. No hepatosplenomegaly. No ecchymosis Neuro: CN II-XII grossly intact. No nuchal rigidity. MSK: No posterior calf tenderness bilaterally, homans sign negative bilaterally. Posterior tibialis and radial pulse +2 bilaterally. Sensation intact in upper and lower extremities. Full active ROM in upper and lower extremities, 5/5 stregnth. Limitations: no limitations Course Vital Signs 11/25/18 11/25/18 12:45 14:00 Temperature 98.4 F Pulse Rate 92 71 Respiratory 18 16 Rate Blood Pressure 115/73 100/62 O2 Sat by Pulse 96 96 Oximetry Medical Decision Making - Medical Decision Making 23-year-old female patient with no pertinent past medical history presents to ED with approximately 3 weeks of epigastric pain that is stabbing in nature was last approximately 5 minutes. Patient states that this occurs multiple times per day and is not associated with any activity, eating, rash. Patient denies any other complaints. Patient denies any chest pain or shortness of breath. Patient does report that she has had diarrhea for approximately 3 weeks as well. Patient denies any pain with urination. Patient denies any headache or change in vision. Patient is currently breast-feeding, states that she does not believe she is . CBC, CMP, lipase within normal limits. UA displayed mild UTI. CT abdomen and pelvis displayed mild to moderate enteritis at level of terminal ileum consider Crohn's disease. Patient discharged with GI follow- up and keflex for UTI. Pt will f/u with PCP in 1-2 days. Pt will return to ER if condition worsens. Case discussed with Dr. Gallardo. - Lab Data Result diagrams: 11/25/18 14:00 11/25/18 14:00 Lab Results 11/25/18 11/25/18 11/25/18 Range/Units 13:55 13:55 14:00 WBC 7.9 (3.8-10.6) k/uL RBC 4.44 (3.80-5.40) m/uL Hgb 12.5 (11.4-16.0) gm/dL Hct 37.5 (34.0-46.0) % MCV 84.5 (80.0-100.0) fL MCH 28.1 (25.0-35.0) pg MCHC 33.2 (31.0-37.0) g/dL RDW 15.1 (11.5-15.5) % Plt Count 414 (150-450) k/uL Neutrophils % 56 % Lymphocytes % 30 % Monocytes % 5 % Eosinophils % 5 % Basophils % 1 % Neutrophils # 4.5 (1.3-7.7) k/uL Lymphocytes # 2.4 (1.0-4.8) k/uL Monocytes # 0.4 (0-1.0) k/uL Eosinophils # 0.4 (0-0.7) k/uL Basophils # 0.1 (0-0.2) k/uL Sodium (137-145) mmol/L Potassium (3.5-5.1) mmol/L Chloride (98-107) mmol/L Carbon Dioxide (22-30) mmol/L Anion Gap mmol/L BUN (7-17) mg/dL Creatinine (0.52-1.04) mg/dL Est GFR (CKD-EPI)AfAm (>60 ml/min/1.73 sqM) Est GFR (CKD-EPI)NonAf (>60 ml/min/1.73 sqM) Glucose (74-99) mg/dL Plasma Lactic Acid [place] (0.7-2.0) mmol/L Calcium (8.4-10.2) mg/dL Total Bilirubin (0.2-1.3) mg/dL AST (14-36) U/L ALT (9-52) U/L Alkaline Phosphatase (38-126) U/L Total Protein (6.3-8.2) g/dL Albumin (3.5-5.0) g/dL Lipase (23-300) U/L Urine Color Yellow Urine Appearance Cloudy H (Clear) Urine pH 5.5 (5.0-8.0) Ur Specific [place] 1.033 (1.001-1.035) Urine Protein Trace H (Negative) Urine Glucose (UA) Negative (Negative) Urine Ketones Negative (Negative) Urine Blood Negative (Negative) Urine Nitrite Negative (Negative) Urine Bilirubin Negative (Negative) Urine Urobilinogen <2.0 (<2.0) mg/dL Ur Leukocyte Esterase Large H (Negative) Urine RBC 4 (0-5) /hpf Urine WBC 29 H (0-5) /hpf Ur Squamous Epith Cells 20 H (0-4) /hpf Urine Mucus Rare H (None) /hpf Urine HCG, Qual Not Detected (Not Detectd) 11/25/18 11/25/18 Range/Units 14:00 14:00 WBC (3.8-10.6) k/uL RBC (3.80-5.40) m/uL Hgb (11.4-16.0) gm/dL Hct (34.0-46.0) % MCV (80.0-100.0) fL MCH (25.0-35.0) pg MCHC (31.0-37.0) g/dL RDW (11.5-15.5) % Plt Count (150-450) k/uL Neutrophils % % Lymphocytes % % Monocytes % % Eosinophils % % Basophils % % Neutrophils # (1.3-7.7) k/uL Lymphocytes # (1.0-4.8) k/uL Monocytes # (0-1.0) k/uL Eosinophils # (0-0.7) k/uL Basophils # (0-0.2) k/uL Sodium 140 (137-145) mmol/L Potassium 3.9 (3.5-5.1) mmol/L Chloride 106 (98-107) mmol/L Carbon Dioxide 25 (22-30) mmol/L Anion Gap 9 mmol/L BUN 18 H (7-17) mg/dL Creatinine 0.71 (0.52-1.04) mg/dL Est GFR (CKD-EPI)AfAm >90 (>60 ml/min/1.73 sqM) Est GFR (CKD-EPI)NonAf >90 (>60 ml/min/1.73 sqM) Glucose 92 (74-99) mg/dL Plasma Lactic Acid [place] 0.9 (0.7-2.0) mmol/L Calcium 9.6 (8.4-10.2) mg/dL Total Bilirubin 0.4 (0.2-1.3) mg/dL AST 16 (14-36) U/L ALT 28 (9-52) U/L Alkaline Phosphatase 119 (38-126) U/L Total Protein 6.6 (6.3-8.2) g/dL Albumin 4.1 (3.5-5.0) g/dL Lipase 100 (23-300) U/L Urine Color Urine Appearance (Clear) Urine pH (5.0-8.0) Ur Specific [place] (1.001-1.035) Urine Protein (Negative) Urine Glucose (UA) (Negative) Urine Ketones (Negative) Urine Blood (Negative) Urine Nitrite (Negative) Urine Bilirubin (Negative) Urine Urobilinogen (<2.0) mg/dL Ur Leukocyte Esterase (Negative) Urine RBC (0-5) /hpf Urine WBC (0-5) /hpf Ur Squamous Epith Cells (0-4) /hpf Urine Mucus (None) /hpf Urine HCG, Qual (Not Detectd) Disposition Clinical Impression: Diarrhea, UTI (urinary tract infection), Abdominal pain Disposition: HOME SELF-CARE Condition: Stable Instructions (If sedation given, give patient instructions): Urinary Tract I nfection in Women (ED), Abdominal Pain (ED) Additional Instructions: Patient to adhere to previously discussed treatment plan and will take medication(s) as directed. Patient to follow up with PCP in 1-2 days. Patient to return to ED if symptoms do not improve. Follow-up with primary care provider and GI consult. Return to ER if condition worsens. Prescriptions: Cephalexin [Keflex] 500 mg PO Q12HR 7 Days cap Is patient prescribed a controlled substance at d/c from ED?: No Referrals: Leana Dias DO [Primary Care Provider] - 1-2 days
[2018-11-25 14:14] LABS: Basophils # (A) 0.1 k/uL (0-0.2); Basophils % (A) 1 %; Eosinophils # (A) 0.4 k/uL (0-0.7); Eosinophils % (A) 5 %; HCT 37.5 % (34.0-46.0); HGB 12.5 gm/dL (11.4-16.0); Lymphocytes # (A) 2.4 k/uL (1.0-4.8); Lymphocytes % (A) 30 %; MCH 28.1 pg (25.0-35.0); MCHC 33.2 g/dL (31.0-37.0); MCV 84.5 fL (80.0-100.0); Mean Platelet Volume 6.6; Monocytes # (A) 0.4 k/uL (0-1.0); Monocytes % (A) 5 %; Neutrophils # (A) 4.5 k/uL (1.3-7.7); Neutrophils % (A) 56 %; Platelet Count 414 k/uL (150-450); RBC 4.44 m/uL (3.80-5.40); RDW 15.1 % (11.5-15.5); WBC 7.9 k/uL (3.8-10.6)
[2018-11-25 14:16] LABS: Appearance,Urine Cloudy (Clear); Bilirubin,Urine Negative (Negative); Blood,Urine Negative (Negative); Color,Urine Yellow; Glucose,Urine (UA) Negative (Negative); Ketones,Urine Negative (Negative); Leukocyte Esterase,Urine Large (Negative); Mucus,Urine Rare /hpf; Nitrite,Urine Negative (Negative); PH, Urine 5.5 (5.0-8.0); Protein,Urine Trace (Negative); RBC,Urine 4 /hpf (0-5); Specific Gravity,Urine 1.033 (1.001-1.035); Squamous Epithelial Cell,Urine 20 /hpf (0-4); Urobilinogen,Urine <2.0 mg/dL (<2.0); WBC,Urine 29 /hpf (0-5)
[2018-11-25 14:21] LABS: ALT 28 U/L (9-52); AST 16 U/L (14-36); Albumin 4.1 g/dL (3.5-5.0); Alkaline Phosphatase 119 U/L (38-126); Anion Gap 9 mmol/L; Blood Urea Nitrogen 18 mg/dL (7-17); Calcium 9.6 mg/dL (8.4-10.2); Carbon Dioxide 25 mmol/L (22-30); Chloride 106 mmol/L (98-107); Glucose 92 mg/dL (74-99); Lipase 100 U/L (23-300); Potassium 3.9 mmol/L (3.5-5.1); Sodium 140 mmol/L (137-145); Total Bilirubin 0.4 mg/dL (0.2-1.3); Total Protein 6.6 g/dL (6.3-8.2)
--- NOTE | 2018-11-25 15:36 | CT ---
EXAMINATION TYPE: CT abdomen pelvis w con DATE OF EXAM: 11/25/2018 HISTORY: Epigastric pain on and off x [address] DLP: 1080mGycm Automated Exposure Control for Dose Reduction was Utilized. CONTRAST: CT scan of the abdomen and pelvis is performed without oral but with IV Contrast, patient injected wi th 100 mL of Isovue 300. COMPARISON: None. FINDINGS: LUNG BASES: No significant abnormality is appreciated. LIVER/GB: No significant abnormality is appreciated. PANCREAS: No significant abnormality is seen. SPLEEN: No significant abnormality is seen. ADRENALS: No significant abnormality is seen. KIDNEYS: No significant abnormality is seen. BOWEL: Evaluation of bowel is suboptimal secondary to lack of enteric contrast. There is no suspiciou s small or large bowel dilatation. Terminal ileum shows mild to moderate wall thickening with suspici ous mural enhancement and mild mesenteric edema which also appears to be present along surface of sma ll bowel loops in the left abdomen, this honeycomb sinus suspicious for mild diffuse enteritis. UTERUS/[place]EXA: No gross abnormality seen. LYMPH NODES: No greater than 1cm abdominal or pelvic lymph nodes are appreciated. Prominent but subce ntimeter lymph nodes throughout the mesentery are present, for reference left-sided lymph nodes coron al image 36 and right lower quadrant lymph nodes coronal image 42. OSSEOUS STRUCTURES: No significant abnormality is seen. OTHER: No significant additional abnormality is seen. IMPRESSION: Suboptimal study but there is mild to moderate enteritis are present at the level of term inal ileum with additional areas of enteritis involving small bowel loops throughout the mid to lower abdomen. Differential includes infectious and inflammatory etiologies. In patient of this age active Crohn's disease needs to BE strongly considered.
[2018-11-25 16:31] VITALS: BP 107/68; PULSE 80; TEMP 98.5
== END 2018-11-25 16:34 | disposition home or self-care (01) ==
LOC: EC 12:40
DX: N39.0 Urinary tract infection, site not specified (principal); R19.7 Diarrhea, unspecified; R10.13 Epigastric pain; K52.9 Noninfective gastroenteritis and colitis, unspecified; Z87.891 Personal history of nicotine dependence
CPT/HCPCS: 36415; 80053; 83605; 83690; 85025; 81001; 81025; 87086; 74177; 99284; 96360; 96361; Q9967

== ENCOUNTER 2018-12-15 07:47 | Day surgery (SDC) | payer BC, OTHER ==
[2018-12-14 11:07] VITALS: BMI 32.5
[~2018-12-15 07:47] MED LIST: LACTATED RINGERS 1,000 ML IV SCH; LIDOCAINE 1% 20 ML VIAL (10MG/ML) FOR IV START INTRADERMA PRN
[2018-12-15 08:19] VITALS: TEMP 97.9
[2018-12-15] MEDS ORDERED: PROPOFOL 10 MG/ML 20 ML VIAL IV ONE (08:25)
[2018-12-15] MEDS ORDERED: fentaNYL (PF) 50 MCG/ML 2 ML AMP ONE (08:25)
[2018-12-15] MEDS ORDERED: MIDAZOLAM 2 MG/2 ML VIAL ONE (08:25)
--- NOTE | 2018-12-15 09:05 | P.PCN ---
Date of Procedure: 12/15/18 Description of Procedure: BRIEF HISTORY: Patient is a 23-year-old female who presents for outpatient evaluation of loose bowel movements. The patient reports that she is at over 1 month of symptoms of change in her bowel habits. She reports loose watery stool, with associated urgency and nighttime symptoms. She denies any blood per rectum, melena or previous episode similar episodes. PROCEDURE PERFORMED: Colonoscopy with biopsy. PREOPERATIVE DIAGNOSIS: Change in bowel habits, diarrhea. ESTIMATED BLOOD LOSS: Minimal. IV sedation per Anesthesia. PROCEDURE: After informed consent was obtained, the patient, was brought into the endoscopy unit. IV sedation was administered by Anesthesia under continuous monitoring. Digital rectal examination was normal. Initially the Olympus CF-190 flexible video colonoscope was then inserted in the rectum, gradually advanced into the cecum without any difficulty. Careful examination was performed as the scope was gradually being withdrawn. The terminal ileum was intubated in the distal 5 cm appeared erythematous and friable with superficial ulcerations suggestive of Crohn's disease with biopsies taken. Ileocecal valve also appeared erythematous and inflamed and the appendiceal orifice appeared normal, however there was some inflammation noted in the cecum. Prep was excellent. Mucosa of the ascending colon, transverse colon, descending colon, and sigmoid colon appeared normal with random biopsies taken in the right colon, transverse colon and left colon. There was minimal inflammation in the distal rectum with biopsies taken. Retroflexion was performed in the rectum and no lesions were seen. The patient tolerated the procedure well. IMPRESSION: 1. Erythema, edema and superficial ulcerations in the terminal ileum, cecum and rectum suggestive of mild to moderate Crohn's disease. 2. Biopsies of the terminal ileum, right colon, transverse colon, left colon and rectum. RECOMMENDATIONS: Findings of this examination were discussed with the patient and her boyfriend. Await pathology. Will have patient follow-up in the gastroenterology clinic in one week to discuss treatment options, anticipate patient will require a course of steroid therapy as well as initiation of maintenance medications.
[2018-12-15 09:26] VITALS: BP 101/78; PULSE 78; RESP 18
== END 2018-12-15 09:37 | disposition home or self-care (01) ==
LOC: ORWHC2ENDO 07:47
PROVIDERS: ATTEND Internal Medicine
DX: K51.90 Ulcerative colitis, unspecified, without complications (principal); K62.89 Other specified diseases of anus and rectum; Z87.891 Personal history of nicotine dependence; E66.9 Obesity, unspecified; Z68.32 Body mass index [BMI] 32.0-32.9, adult
CPT/HCPCS: 81025; 88305; 45380; J2250; J3010; J2704

== ENCOUNTER → 2019-03-15 | Outpatient (CLI) | payer BC, OTHER ==
[2019-03-15 13:10] LABS: Basophils # (A) 0.1 k/uL (0-0.2); Basophils % (A) 1 %; Eosinophils # (A) 0.3 k/uL (0-0.7); Eosinophils % (A) 3 %; HCT 41.3 % (34.0-46.0); HGB 13.9 gm/dL (11.4-16.0); Lymphocytes # (A) 1.7 k/uL (1.0-4.8); Lymphocytes % (A) 18 %; MCH 28.9 pg (25.0-35.0); MCHC 33.8 g/dL (31.0-37.0); MCV 85.5 fL (80.0-100.0); Monocytes # (A) 0.4 k/uL (0-1.0); Monocytes % (A) 5 %; Neutrophils # (A) 6.9 k/uL (1.3-7.7); Neutrophils % (A) 72 %; Platelet Count 411 k/uL (150-450); RBC 4.83 m/uL (3.80-5.40); RDW 14.1 % (11.5-15.5); WBC 9.5 k/uL (3.8-10.6)
[2019-03-15 15:07] LABS: Erythrocyte Sedimentation Rate 16 mm/hr (0-20)
[2019-03-15 20:12] LABS: African American GFR (CKD) 119.6 (60.0-200.0); Albumin 4.6 g/dL (3.80-4.90); Albumin/Globulin Ratio 2.3 (1.60-3.17); BUN/Creat Ratio 26.25 Ratio (12.00-20.00); C Reactive Protein 1.3 mg/dL (0.0-0.8); Calcium 9.7 mg/dL (8.7-10.3); Non-African American GFR(CKD) 103.2 (60.0-200.0); Potassium 4.3 mmol/L (3.5-5.5); Total Bilirubin 0.2 mg/dL (0.3-1.2); Total Protein 6.6 g/dL (6.2-8.2)
== END | disposition home or self-care (01) ==
LOC: LABWHC1 12:22
PROVIDERS: ATTEND Internal Medicine
DX: K52.9 Noninfective gastroenteritis and colitis, unspecified (principal)
CPT/HCPCS: 36415; 80053; 85025; 85652; 86140

== ENCOUNTER → 2019-03-16 | Outpatient (CLI) | payer BC, OTHER | LOC: LABWHC1 22:00 | PROVIDERS: ATTEND Internal Medicine | DX: K52.9 Noninfective gastroenteritis and colitis, unspecified (principal) | CPT/HCPCS: 83630; 83993; 87045; 87046; 87328; 87329 ==

== ENCOUNTER → 2019-04-20 | Outpatient (CLI) | payer BC, OTHER ==
--- NOTE | 2019-04-20 15:31 | XR ---
EXAMINATION TYPE: XR foot complete LT, XR ankle complete LT DATE OF EXAM: 04/20/2019 CLINICAL HISTORY: Pain of the lateral foot and lateral malleolus after rolling injury yesterday. TECHNIQUE: Frontal, lateral, and oblique images of the left ankle and foot are obtained. COMPARISON: None FINDINGS: There is no acute fracture/dislocation evident in the left ankle nor foot. Very small plan tare worker spur is noted. The joint spaces in the left ankle and foot appear within normal limits. Th e overlying soft tissue appears unremarkable. IMPRESSION: There is no acute fracture or dislocation in the left ankle nor foot.
== END | disposition home or self-care (01) ==
LOC: RADXRYALE 13:26
PROVIDERS: ATTEND Nurse Practitioner Family
DX: M25.572 Pain in left ankle and joints of left foot (principal)

== ENCOUNTER → 2019-05-02 | Outpatient (CLI) | payer BC, OTHER ==
[2019-05-02 13:34] LABS: Basophils % (A) 1 %; Eosinophils # (A) 0.4 k/uL (0-0.7); Eosinophils % (A) 5 %; HCT 41.2 % (34.0-46.0); HGB 13.8 gm/dL (11.4-16.0); Lymphocytes # (A) 1.9 k/uL (1.0-4.8); Lymphocytes % (A) 27 %; MCH 29.6 pg (25.0-35.0); MCHC 33.6 g/dL (31.0-37.0); MCV 88.1 fL (80.0-100.0); Mean Platelet Volume 5.7; Monocytes # (A) 0.4 k/uL (0-1.0); Monocytes % (A) 6 %; Neutrophils # (A) 4.2 k/uL (1.3-7.7); Neutrophils % (A) 60 %; Platelet Count 396 k/uL (150-450); RBC 4.68 m/uL (3.80-5.40); RDW 13.2 % (11.5-15.5)
[2019-05-02 15:14] LABS: Erythrocyte Sedimentation Rate 13 mm/hr (0-20)
[2019-05-02 19:38] LABS: Iron Saturation 22.89 (12.00-45.00)
[2019-05-02 19:42] LABS: African American GFR (CKD) 119.6 (60.0-200.0); Albumin 4.8 g/dL (3.80-4.90); Albumin/Globulin Ratio 2.4 (1.60-3.17); Anion Gap 10.9 mmol/L (4.00-12.00); BUN/Creat Ratio 28.75 Ratio (12.00-20.00); Calcium 9.3 mg/dL (8.7-10.3); Carbon Dioxide 24.1 mmol/L (21.6-31.8); Potassium 4.1 mmol/L (3.5-5.5); Total Bilirubin 0.3 mg/dL (0.3-1.2); Total Protein 6.8 g/dL (6.2-8.2)
[2019-05-02 19:46] LABS: Ferritin 40.2 ng/mL (10.0-291.0)
[2019-05-02 19:58] LABS: Folate, Serum 23.8 ng/mL
[2019-05-02 21:03] LABS: Hepatitis A Antibody IgM Non-Reactive (Non-Reactive); Hepatitis B Core IgM Non-Reactive (Non-Reactive); Hepatitis B Surface Antigen Non-Reactive (Non-Reactive)
[2019-05-02 21:47] LABS: Vitamin D 25 Hydroxy 20.6 ng/mL (30.0-100.0)
[2019-05-02 22:16] LABS: Hepatitis C IgG Antibody Non-Reactive (Non-Reactive)
[2019-05-03 12:02] LABS: Liver/Kidney Microsome Antibod 1.1 UNITS (<=20)
[2019-05-03 14:29] LABS: Ceruloplasmin 33.9 mg/dL (20.0-60.0)
== END | disposition home or self-care (01) ==
LOC: LABWHC1 11:49
PROVIDERS: ATTEND Internal Medicine
DX: K50.80 Crohn's disease of both small and large intestine without complications (principal); R74.8 Abnormal levels of other serum enzymes
CPT/HCPCS: 36415; 80053; 80074; 82103; 82306; 82390; 82607; 82728; 82746; 83516; 83540; 83550; 85025; 85652; 86038; 86140; 86376

== ENCOUNTER → 2019-06-06 | Outpatient (CLI) | payer BC, OTHER | END | disposition home or self-care (01) | LOC: LABWHC1 14:46 | PROVIDERS: ATTEND Internal Medicine | DX: K50.80 Crohn's disease of both small and large intestine without complications (principal) | CPT/HCPCS: 36415; 84439; 84443 ==

== ENCOUNTER 2020-03-20 16:42 | Outpatient (CLI) | payer BC, OTHER | END 2020-03-20 17:50 | disposition home or self-care (01) | LOC: FBPOP 16:42 | PROVIDERS: ATTEND Obstetrics & Gynecology | DX: O99.89 Other specified diseases and conditions complicating pregnancy, childbirth and the puerperium (principal); R10.9 Unspecified abdominal pain; Z3A.00 Weeks of gestation of pregnancy not specified | CPT/HCPCS: 59025; 99213 ==

== ENCOUNTER → 2020-03-29 | Outpatient (CLI) | payer BC, OTHER | END | disposition home or self-care (01) | LOC: LABWHC1 09:27 | PROVIDERS: ATTEND Obstetrics & Gynecology | DX: O26.899 Other specified pregnancy related conditions, unspecified trimester (principal); Z3A.00 Weeks of gestation of pregnancy not specified | CPT/HCPCS: 36415; 82239 ==

== ENCOUNTER 2020-04-04 05:54 | Inpatient (IN) | payer BC, OTHER ==
[2020-04-04] MEDS ORDERED: TERBUTALINE 1 MG/ML VIAL SQ PRN (06:10)
[2020-04-04] MEDS ORDERED: CARBOPROST TROMETHAMINE 250 MCG/ML 1 ML AMP IM PRN (06:10)
[2020-04-04] MEDS ORDERED: OXYTOCIN 10 UNIT/ML 1 ML VIAL IM PRN (06:10)
[2020-04-04] MEDS ORDERED: METHYLERGONOVINE 0.2 MG/ML 1 ML AMP IM PRN (06:10)
[2020-04-04] MEDS ORDERED: LIDOCAINE 0.5% (PF) 5 MG/ML (50 ML SDV) SQ PRN (06:10)
[2020-04-04] MEDS ORDERED: OXYTOCIN 30 UNITS/500 ML NS 30 UNIT in SALINE 1 500ML.BAG IV SCH (06:15)
[2020-04-04 06:23] LABS: Basophils % (A) 0 %; Eosinophils # (A) 0.2 k/uL (0-0.7); Eosinophils % (A) 2 %; HCT 39.7 % (34.0-46.0); HGB 13.2 gm/dL (11.4-16.0); Lymphocytes # (A) 2.2 k/uL (1.0-4.8); Lymphocytes % (A) 23 %; MCH 29.9 pg (25.0-35.0); MCHC 33.3 g/dL (31.0-37.0); MCV 89.9 fL (80.0-100.0); Mean Platelet Volume 7.6; Monocytes # (A) 0.3 k/uL (0-1.0); Monocytes % (A) 3 %; Neutrophils # (A) 6.6 k/uL (1.3-7.7); Neutrophils % (A) 70 %; Platelet Count 262 k/uL (150-450); RBC 4.42 m/uL (3.80-5.40); RDW 13.8 % (11.5-15.5); WBC 9.5 k/uL (3.8-10.6)
[2020-04-04] MEDS: LACTATED RINGERS 1,000 ML IV SCH ×2 (06:25→13:04)
--- NOTE | 2020-04-04 09:06 | P.HPOB ---
History of Present Illness H&P Date: 04/04/20 This is a 24-year-old white female 3 para 1011 EDC 04/13/2020 at 38-5/7 weeks' gestation. Patient presented to the office with severe itching, fasting bile levels were noted to be elevated at 27. The diagnosis of cholestasis of was given. Patient was placed on meds, and induction scheduled today per standard of care. She denies vaginal bleeding or fluid leakage. Fetus is been active throughout the . Obstetric history is significant for blood type O positive, rubella status immune. Urine culture, group B strep cultures, gonorrhea and chlamydia cultures all negative. One-hour Glucola 129, repeat 127. Anatomic survey sonographically is within normal limits. Past medical history is significant for Crohn's disease, and a history of IUFD at 40 and one sevenths weeks in 2017. Past surgical history elbow repair 2017 on the right, wisdom teeth extracted. Current medications vitamins daily, Zoloft 25 mg daily, Eurax ED cholic acid twice daily. ALLERGIES none known. Family history is noncontributory. Reproductive history vaginal delivery 2019 liveborn male infant, IUFD 2017 at 40 and one sevenths weeks' gestation. Social history patient is single, she is a tobacco smoker one half pack per day. She denies alcohol or drug use. On exam this is a pleasant young female who is 5 foot 4 inches, 213 pounds, blood pressure 113/55. The general physical exam is within normal limits. The cervix is 3-4 cm dilated, 60-70% effaced, -2 station. Vertex. Artificial amniorrhexis reveals clear fluid. heart tones are reactive consistent with reactive NST. Impression: 38-5/7 weeks intrauterine , cholestasis of noted. Here for induction of labor, all signs reassuring. Plan: Continue oxytocin per hospital protocol. Continue close maternal and surveillance. Analgesic options have been reviewed with the patient in detail. Anticipate normal spontaneous vaginal delivery. Review of Systems Constitutional: Reports as per HPI Past Medical History Past Medical History: Asthma Additional Past Medical History / Comment(s): sports induced asthma,crohns History of Any Multi-Drug Resistant Organisms: None Reported Past Surgical History: Orthopedic Surgery Additional Past Surgical History / Comment(s): left elbow 2017 Past Anesthesia/Blood Transfusion Reactions: No Reported Reaction Past Psychological History: Anxiety, Depression Smoking Status: Never smoker Past Alcohol Use History: Occasional Additional Past Alcohol Use History / Comment(s): quit smoking 2018, light smoker for few years only Past Drug Use History: None Reported - Past Family History Mother Family Medical History: No Reported History Medications and Allergies Home Medications Medication Instructions Recorded Confirmed Type Pnv,Calcium 72/Iron/Folic Acid 1 tab PO DAILY 08/29/18 04/04/20 History [ Plus Tablet] Mesalamine 1.2 gm PO DAILY 04/04/20 04/04/20 History Sertraline [Zoloft] 1 tab PO DAILY 04/04/20 04/04/20 History ursodioL [Ursodiol] 1 cap PO DAILY 04/04/20 04/04/20 History Allergies Allergy/AdvReac Type Severity Reaction Status Date / Time No Known Allergies Allergy Verified 04/04/20 06:07 Exam Vital Signs Temp Pulse Resp BP Pulse Ox 04/04/20 06:14 96.3 F L 68 16 113/55 99 Intake and Output 04/03/20 04/04/20 04/04/20 22:59 06:59 14:59 Other: Weight 96.615 kg See dictation under HPI please Results Result Diagrams: 04/04/20 06:00 Assessment and Plan Assessment: 38-5/7 weeks intrauterine , cholestasis of , here for ind uction of labor. All signs reassuring. Plan: Continue close maternal and surveillance. Oxytocin per hospital protocol. Analgesic options reviewed. Anticipate normal spontaneous vaginal delivery. Time with Patient: Less than 30
[2020-04-04] MEDS ORDERED: diphenhydrAMINE 25 MG CAP PO PRN (16:18)
[2020-04-04] MEDS ORDERED: ZOLPIDEM 5 MG TAB PO PRN (16:18)
[2020-04-04] MEDS ORDERED: SIMETHICONE 80 MG CHEWABLE PO PRN (16:18)
[2020-04-04] MEDS ORDERED: diphenhydrAMINE 50 MG CAP PO PRN (16:18)
[2020-04-04] MEDS ORDERED: HYDROCORTISONE 2.5% RECTAL CREAM 30 GM TUBE RECTAL PRN (16:18)
[2020-04-04] MEDS ORDERED: ACETAMINOPHEN TAB 325 MG TAB PO PRN (16:18)
[2020-04-04] MEDS ORDERED: LANOLIN CREAM 5 GM TUBE TOPICAL PRN (16:18)
[2020-04-04] MEDS ORDERED: BENZOCAINE/MENTHOL SPRAY 1 GM/SPRAY AEROSOL TOPICAL PRN (16:18)
[2020-04-04] MEDS ORDERED: diphenhydrAMINE 50 MG/ML 1 ML VIAL IVP PRN ×2 (16:18)
--- NOTE | 2020-04-04 16:18 | P.PROBDLV ---
Vaginal Delivery Note - . Vaginal Delivery Note: This is a 24-year-old female 3 para 2000 EDC 04/13/2020 at 38-5/7 weeks' gestation. Patient presents for induction for cholestasis of , recent fasting bile acid returned at 27. Fetus is been active throughout the . Group B strep cultures negative, blood type O positive, rubella status immune. Please see dictated history and physical for details. Artificial amniorrhexis revealed clear fluid. Oxytocin was started and titrated per hospital protocol. Patient was offered analgesia and declined options. She progressed well through the first stage of labor and became completely dilated at 1555 hrs. The perineal body was prepped and draped in usual sterile fashion. Very rapidly the 's head delivered occiput anterior and restituted accordingly. There was a nuchal cord 1 that was reduced. The left or anterior shoulder was delivered from underneath the pubic symphysis at which time the oropharynx, nasopharynx, and external nares were all bulb suctioned on the perineal body. Patient was officially delivered of a liveborn female at 1559 hours. Umbilical cord was doubly clamped and ligated, she was handed to waiting nurses for evaluation where scores of 9 and 10 at one and 5 minutes respectively are given. Placenta delivered spontaneously, it was inspected and noted to be intact with trivascular cord at 16 002 hours. Uterus is then massaged. Careful inspection of the cervix, vagina, perineum, periurethral, and perirectal areas revealed no lacerations and no defects. Total estimated blood loss 300 mL's. Infant weighs 8 lbs. 14 oz. or 4015 g. Placenta is sent to pathology for history of choles tasis of . Patient and her family are allowed to begin the bonding experience in the LDR.
[2020-04-04] MEDS ORDERED: OXYTOCIN 20 UNITS/1000 ML NS 1,000 ML IV SCH (16:30)
[2020-04-04] MEDS: IBUPROFEN 600 MG TAB PO PRN (16:55)
[2020-04-05] MEDS: SENNOSIDES-DOCUSATE SODIUM 1 EACH TAB PO SCH ×2 (01:31→10:12)
[2020-04-05] MEDS: LACTATED RINGERS 1,000 ML IV SCH (01:32)
[2020-04-05] MEDS: IBUPROFEN 600 MG TAB PO PRN ×2 (03:56→11:47)
[2020-04-05 06:18] LABS: Basophils # (A) 0.1 k/uL (0-0.2); Basophils % (A) 1 %; Eosinophils # (A) 0.1 k/uL (0-0.7); Eosinophils % (A) 1 %; HCT 38.4 % (34.0-46.0); HGB 12.9 gm/dL (11.4-16.0); Lymphocytes # (A) 2.1 k/uL (1.0-4.8); Lymphocytes % (A) 19 %; MCH 30.2 pg (25.0-35.0); MCHC 33.5 g/dL (31.0-37.0); MCV 90.3 fL (80.0-100.0); Mean Platelet Volume 8.1; Monocytes # (A) 0.6 k/uL (0-1.0); Monocytes % (A) 5 %; Neutrophils # (A) 7.9 k/uL (1.3-7.7); Neutrophils % (A) 72 %; Platelet Count 240 k/uL (150-450); RBC 4.26 m/uL (3.80-5.40); RDW 13.7 % (11.5-15.5)
--- NOTE | 2020-04-05 08:41 | P.DS ---
Providers Date of admission: 04/04/20 05:54 Expected date of discharge: 04/05/20 Attending physician: Ena Perla Primary care physician: Stated None Hospital Course: This is a 24-year-old white female 3 para 2001 EDC 04/13/2020 38-5/7 weeks' gestation who presented for induction for cholestasis of . Fasting bile acids 27. Remaining within normal limits, group B strep cultures negative, rubella status immune, blood type O positive. Please see dictated history and physical for details. Patient was admitted, artificial amniorrhexis revealed clear fluid. Analgesic options were declined. She went on to deliver vaginally a liveborn female infant with scores of 9 and 10 at one and 5 minutes respectively. There was a nuchal cord 1. Estimated blood loss 300 mL's. No perineal lacerations. weight 8 lbs. 14 oz. or 4015 g. Please see dictated delivery note for details. This morning the patient is doing well. She is voiding, inability, passing flatus without difficulty. Vital signs are stable and she is afebrile. Extremities reveal trace edema. Breasts are not engorged. Fundus is firm, midline, symmetric, 18 week size. [place] infant is doing well. Patient is judged to be in very good condition for discharge home. She will follow-up with me in the office in 6 weeks. I have reminded her no intercourse, tampons or douching. She will use [id number] Advil or Aleve, or Motrin as needed for pain. I've asked her to call with any fevers shakes or chills, foul smelling or copious lochia, with the passage of large blood clots, with any pain not alleviated by [id number] products, or indeed with any concerns. Contraceptive options and been reviewed and we will discuss this further in the office. Assessment: Doing Well day #1 Patient Condition at Discharge: Good Plan - Discharge Summary Discharge Rx Participant: No New Discharge Prescriptions: No Action Pnv,Calcium 72/Iron/Folic Acid [ Plus Tablet] 1 tab PO DAILY ursodioL [Ursodiol] 1 cap PO DAILY Sertraline [Zoloft] 1 tab PO DAILY Mesalamine 1.2 gm PO DAILY Discharge Medication List Pnv,Calcium 72/Iron/Folic Acid [ Plus Tablet] 1 tab PO DAILY 08/29/18 [History] Mesalamine 1.2 gm PO DAILY 04/04/20 [History] Sertraline [Zoloft] 1 tab PO DAILY 04/04/20 [History] ursodioL [Ursodiol] 1 cap PO DAILY 04/04/20 [History] Discharge Disposition: HOME SELF-CARE
[2020-04-05 10:07] VITALS: RESP 18
[2020-04-05 15:13] VITALS: BP 123/68; PULSE 77; TEMP 97.3
== END 2020-04-05 16:10 | disposition home or self-care (01) | DRG 805 ==
LOC: 4FBP 05:54
PROVIDERS: ADMIT Obstetrics & Gynecology; ATTEND Obstetrics & Gynecology
PROC: 10E0XZZ Delivery of Products of Conception, External Approach (ICD-10-PCS; principal; 2020-04-04)
PROC: 3E033VJ Introduction of Other Hormone into Peripheral Vein, Percutaneous Approach (ICD-10-PCS; 2020-04-04)
PROC: 10907ZC Drainage of Amniotic Fluid, Therapeutic from Products of Conception, Via Natural or Artificial Opening (ICD-10-PCS; 2020-04-04)
DX: O26.62 Liver and biliary tract disorders in childbirth (principal); K83.1 Obstruction of bile duct; Z37.0 Single live birth; K50.90 Crohn's disease, unspecified, without complications; O99.344 Other mental disorders complicating childbirth; O69.81X0 Labor and delivery complicated by cord around neck, without compression, not applicable or unspecified; O99.62 Diseases of the digestive system complicating childbirth; J45.909 Unspecified asthma, uncomplicated; O99.52 Diseases of the respiratory system complicating childbirth; F41.9 Anxiety disorder, unspecified; F32.9 Major depressive disorder, single episode, unspecified; Z3A.38 38 weeks gestation of pregnancy; Z87.891 Personal history of nicotine dependence; Z79.899 Other long term (current) drug therapy; Z87.59 Personal history of other complications of pregnancy, childbirth and the puerperium
CPT/HCPCS: 85025; 86850; 86900; 86901; 88307

== ENCOUNTER → 2020-11-11 | Outpatient (CLI) | payer BC, OTHER ==
--- NOTE | 2020-11-12 05:59 | CT ---
EXAMINATION TYPE: CT abdomen pelvis wo/w con DATE OF EXAM: 11/11/2020 HISTORY: Periumbilical pain, diarrhea. History of Crohn's. CT DLP: 2502mGycm Automated Exposure Control for Dose Reduction was Utilized. CONTRAST: CT scan of the abdomen and pelvis is performed with oral and without and with IV Contrast, patient in jected with 100 mL of Isovue 300. COMPARISON: CT abdomen and pelvis November 25, 2018 FINDINGS: LUNG BASES: No significant abnormality is appreciated. LIVER/GB: Contracted gallbladder on today's study. PANCREAS: No significant abnormality is seen. SPLEEN: No significant abnormality is seen. ADRENALS: No significant abnormality is seen. KIDNEYS: Noncontrast images show no renal calculi bilaterally. Postcontrast images show symmetric cor ticomedullary uptake and excretion without concerning solid or cystic renal mass or hydronephrosis se en bilaterally. BOWEL: The oral Contrast only reaches proximal ileal loops in the right abdomen. There is no suspicio us small or large bowel dilatation. Terminal ileum shows mild to moderate eccentric wall thickening w ith mucosal enhancement over roughly 11 cm segment. No suspicious or significant dilatation just prox imal to this identified. I do not see additional areas of suspicious wall thickening or mucosal enhan cement on current study in small bowel loops. UTERUS/ADNEXA: Anteverted uterus. No adnexal masses. LYMPH NODES: No greater than 1cm abdominal or pelvic lymph nodes are appreciated. Persistent prominen t but subcentimeter right lower quadrant mesenteric lymph nodes OSSEOUS STRUCTURES: Sacroiliac joints are within normal limits. OTHER: Small fat-containing umbilical hernia. IMPRESSION: Recurrent acute enteritis involving the terminal ileum over moderate length segment. Nikki elate clinically.
== END | disposition home or self-care (01) ==
LOC: RADCTMAIN 17:11
PROVIDERS: ATTEND Nurse Practitioner Family
DX: K52.9 Noninfective gastroenteritis and colitis, unspecified (principal)
CPT/HCPCS: 74178; Q9967 ×2

== ENCOUNTER → 2021-04-07 | Outpatient (CLI) | payer OTHER ==
[2021-04-07 20:51] LABS: HCT 41.8 % (37.2-46.3); HGB 13.7 g/dL (12.0-15.0); MCH 29.5 pg (27.0-32.0); MCHC 32.8 g/dL (32.0-37.0); MCV 89.9 fL (80.0-97.0); Platelet Count 379 X 10*3/uL (140-440); RBC 4.65 X 10*6/uL (4.10-5.20); RDW 12.4 % (11.5-14.5); WBC 6.31 X 10*3/uL (4.50-10.00)
[2021-04-07 21:50] LABS: Erythrocyte Sedimentation Rate 20 mm/Hr (0-20)
[2021-04-08 02:43] LABS: African American GFR (CKD) 117.9 (60.0-200.0); Albumin/Globulin Ratio 2.17 (1.60-3.17); Anion Gap 9.1 mmol/L (4.00-12.00); BUN/Creat Ratio 23.75 Ratio (12.00-20.00); C Reactive Protein 0.7 mg/dL (0.0-0.8); Calcium 9.6 mg/dL (8.7-10.3); Carbon Dioxide 22.9 mmol/L (21.6-31.8); Globulin 2.3 g/dL (1.6-3.3); Non-African American GFR(CKD) 101.8 (60.0-200.0); Potassium 4.5 mmol/L (3.5-5.5); Total Bilirubin 0.3 mg/dL (0.3-1.2); Total Protein 7.3 g/dL (6.2-8.2)
== END | disposition home or self-care (01) ==
LOC: LABWHC1 13:22
PROVIDERS: ATTEND Internal Medicine Gastroenterology
DX: K50.80 Crohn's disease of both small and large intestine without complications (principal)
CPT/HCPCS: 36415; 80053; 82306; 82607; 82746; 85027; 85652; 86140

== ENCOUNTER → 2022-02-19 | Outpatient (CLI) | payer OTHER ==
[2022-02-19 22:47] LABS: HCT 43.6 % (37.2-46.3); HGB 13.8 g/dL (12.0-15.0); MCHC 31.7 g/dL (32.0-37.0); MCV 91.6 fL (80.0-97.0); Mean Platelet Volume 9.5 fL (9.5-12.2); NRBC Per 100 WBC 0 /100 WBCS (0.0-0.0); Platelet Count 361 X 10*3/uL (140-440); RBC 4.76 X 10*6/uL (4.10-5.20); RDW 12.5 % (11.5-14.5)
[2022-02-19 22:58] LABS: ALT 14 U/L (8-44); AST 22 U/L (13-35); African American GFR (CKD) 137.6 (60.0-200.0); Albumin 4.8 g/dL (3.8-4.9); Albumin/Globulin Ratio 1.71 (1.60-3.17); Alkaline Phosphatase 95 U/L (41-126); BUN/Creat Ratio 27.14 Ratio (12.00-20.00); Calcium 9.6 mg/dL (8.7-10.3); Carbon Dioxide 24.8 mmol/L (20.0-27.5); Chloride 101 mmol/L (96-109); Globulin 2.8 g/dL (1.6-3.3); Glucose 85 mg/dL (70-110); Non-African American GFR(CKD) 118.7 (60.0-200.0); Potassium 4.4 mmol/L (3.5-5.5); Sodium 136 mmol/L (135-145); Total Bilirubin <0.15 mg/dL (0.30-1.20); Total Protein 7.6 g/dL (6.2-8.2)
== END | disposition home or self-care (01) ==
LOC: LABWHC1 14:17
PROVIDERS: ATTEND Internal Medicine Gastroenterology
DX: K50.80 Crohn's disease of both small and large intestine without complications (principal)
CPT/HCPCS: 36415; 80053; 85027